=== PATIENT | male | born 1950 | race Caucasian/White ===

== ENCOUNTER → 2022-01-21 | Outpatient (CLI) | payer MEDICARE ==
[2022-01-21 14:32] LABS: Basophils # (A) 0.07 X 10*3/uL (0.00-0.10); Eosinophils # (A) 0.04 X 10*3/uL (0.04-0.35); Eosinophils % (A) 0.6 %; HCT 38.7 % (39.6-50.0); HGB 13.3 g/dL (13.0-17.0); Immature Grans, Automated 2.2 %; Lymphocytes # (A) 0.94 X 10*3/uL (0.90-5.00); MCHC 34.4 g/dL (32.0-37.0); MCV 90.2 fL (80.0-97.0); Mean Platelet Volume 10.2 fL (9.5-12.2); Monocytes # (A) 0.74 X 10*3/uL (0.20-1.00); Monocytes % (A) 10.2 %; NRBC Per 100 WBC 0 /100 WBCS (0.0-0.0); Platelet Count 161 X 10*3/uL (140-440); RBC 4.29 X 10*6/uL (4.40-5.60); RDW 13.6 % (11.5-14.5); WBC 7.25 X 10*3/uL (4.50-10.00)
[2022-01-21 14:43] LABS: African American GFR (CKD) 75.4 (60.0-200.0); Anion Gap 12.9 mmol/L (10.00-18.00); BUN/Creat Ratio 12.48 Ratio (12.00-20.00); Blood Urea Nitrogen 14.1 mg/dL (9.0-27.0); Calcium 9.5 mg/dL (8.7-10.3); Carbon Dioxide 26.6 mmol/L (20.0-27.5); Potassium 3.5 mmol/L (3.5-5.5)
[2022-01-21 17:50] LABS: Appearance,Urine Clear (Clear); Bilirubin,Urine Negative (Negative); Blood,Urine Negative (Negative); Color,Urine Yellow (Yellow); Ketones,Urine Negative (Negative); Nitrite,Urine Negative (Negative); PH, Urine 6.5 (5.0-8.0); Specific Gravity,Urine 1.008 (1.001-1.030); Urobilinogen,Urine 0.2 (0.2,1.0)
== END | disposition home or self-care (01) ==
LOC: LABPAT 10:09
PROVIDERS: ATTEND Urology
DX: Z01.812 Encounter for preprocedural laboratory examination (principal); C61 Malignant neoplasm of prostate
CPT/HCPCS: 80048; 81003; 85025; 87086

== ENCOUNTER 2022-01-30 06:15 | Day surgery (SDC) | payer MEDICARE ==
--- NOTE | 2022-01-24 14:00 | P.HPIHPCON ---
History of Present Illness H&P Date: 01/24/22 Chief Complaint: Prostate cancer This is a 71-year-old male with history of [place] 7(3+4) prostate cancer, he elected to proceed with radiation. Option of placement was discussed with him. Discussed with him the rationale of doing a SpaceOR, and the risk of benefit of doing the procedure, risk of bleeding infection rectal perforation were discussed. He understood all the risk and agreed to proceed prostate size 55 grams Consent for Procedure: I have explained the operation/procedure to the patient, including the risks, benefits, side effects, alternative therapies (including not receiving the proposed treatment or service), the likelihood of the patient achieving his/her goals, and potential recuperation problems for the procedure/sedation/analgesia, as well as any blood products, if indicated. I also explained to the patient the risks, benefits and side effects of the alternatives, as well as the risks related to not receiving the proposed procedure, care, treatment, or services. Surgical - Exam - General no distress, no pain - Eyes normal ocular movement, no pale - ENT normal nares, normal mucosa - Respiratory normal expansion, normal respiratory effort - Abdomen Abdomen: soft, non tender - Psychiatric oriented to time, oriented to person, oriented to place Assessment and Plan Assessment: -OR for SpaceOR placement
[2022-01-27 15:20] VITALS: BMI 28.7
[~2022-01-30 06:15] MED LIST: LACTATED RINGERS 1,000 ML IV SCH; LIDOCAINE 1% (10MG/ML) FOR IV START INTRADERMA PRN
[2022-01-30 06:43] VITALS: TEMP 97
[2022-01-30 06:55] LABS: Glucose,Whole Blood 156 mg/dL (70-110)
[2022-01-30] MEDS ORDERED: fentaNYL (PF) 50 MCG/ML 2 ML AMP IV PRN (07:00)
[2022-01-30] MEDS ORDERED: ONDANSETRON 4 MG/2 ML VIAL IVP PRN (07:00)
[2022-01-30] MEDS ORDERED: MIDAZOLAM 2 MG/2 ML VIAL ONE (07:26)
[2022-01-30] MEDS ORDERED: PROPOFOL 10 MG/ML 20 ML VIAL IV ONE (07:26)
[2022-01-30] MEDS ORDERED: KETAMINE 10 MG/ML 20 ML VIAL ONE (07:26)
[2022-01-30] MEDS ORDERED: LIDOCAINE 2% INJ 20 MG/ML SQ ONE ×3 (07:32→07:51)
--- NOTE | 2022-01-30 08:30 | P.OP ---
Date of Procedure: 01/30/22 Preoperative Diagnosis: prostate cancer Postoperative Diagnosis: Same Procedure(s) Performed: Transrectal U/S and SpaceOR placement Implants: SpaceOR gel Anesthesia: other (sedation) Surgeon: Saurav Thakkar Estimated Blood Loss (ml): 1 Pathology: none sent Condition: stable Disposition: PACU Indications for Procedure: This is a 71-year-old male with history of [place] 7(3+4) prostate cancer, he elected to proceed with radiation. Option of placement was discussed with him. Discussed with him the rationale of doing a SpaceOR, and the risk of benefit of doing the procedure, risk of bleeding infection rectal perforation were discussed. He understood all the risk and agreed to proceed prostate size 55 grams Description of Procedure: The patient was taken to the operating room and placed in the dorsolithotomy po sition, with his legs supported in [place] stirrups. The external genitalia was prepped and draped sterilely. The transrectal ultrasound probe was placed intrarectally. The prostate was imaged. The probe was then placed within the stabilizing stand. A spinal needle was advanced under ultrasonic guidance to the level of the urogenital diaphragm, and lidocaine was used to infiltrate the tissues as the needle was withdrawn. . Next, the SpaceOAR needle was passed through the midline of the perineum, 1-2 cm anterior to the anal opening. The needle was slowly advanced under ultrasonic guidance until the needle tip was located within the fat plane between the prostate and rectum, at the level of the mid prostate gland. The needle was confirmed to be midline on the axial imaging. A small amount of normal saline was injected for hydrodissection. Next, the SpaceOAR components were mixed and loaded into the Y connector per protocol. The Y connector was then connected to the needle, and the components were injected slowly over a course of approximately 12 seconds. A total of 10 ml was injected. Significant distance was created between the prostate and rectum, as desired. It should be noted that at no point was there any concern of rectal perforation. The needle was withdrawn, as well as the transrectal ultrasound probe, and the procedure was terminated. The patient tolerated the procedure well and was taken to the recovery room in stable condition
[2022-01-30 08:36] VITALS: BP 126/78; PULSE 59; RESP 16
== END 2022-01-30 08:51 | disposition home or self-care (01) ==
LOC: OR 06:15
PROVIDERS: ATTEND Urology
DX: C61 Malignant neoplasm of prostate (principal); K21.9 Gastro-esophageal reflux disease without esophagitis; Z79.82 Long term (current) use of aspirin; Z79.899 Other long term (current) drug therapy; Z79.84 Long term (current) use of oral hypoglycemic drugs
CPT/HCPCS: 55874; C1889; J2001; J2250; J0690; J2405; J2704

== ENCOUNTER → 2022-02-03 | Outpatient (CLI) | payer MEDICARE | END | disposition home or self-care (01) | LOC: LABWHC1 11:57 | PROVIDERS: ATTEND Radiology Radiation Oncology | DX: C61 Malignant neoplasm of prostate (principal); C91.10 Chronic lymphocytic leukemia of B-cell type not having achieved remission | CPT/HCPCS: 36415; 84153 ==

== ENCOUNTER → 2022-06-04 | Outpatient (CLI) | payer MEDICARE | END | disposition home or self-care (01) | LOC: LABWHC1 13:54 | PROVIDERS: ATTEND Radiology Radiation Oncology | DX: Z00.6 Encounter for examination for normal comparison and control in clinical research program (principal); C61 Malignant neoplasm of prostate; C91.10 Chronic lymphocytic leukemia of B-cell type not having achieved remission | CPT/HCPCS: 36415; 84153 ==

== ENCOUNTER → 2023-03-04 | Outpatient (CLI) | payer MEDICARE | END | disposition home or self-care (01) | LOC: LABWHC1 08:22 | PROVIDERS: ATTEND Radiology Radiation Oncology | DX: Z00.6 Encounter for examination for normal comparison and control in clinical research program (principal); C61 Malignant neoplasm of prostate; C91.10 Chronic lymphocytic leukemia of B-cell type not having achieved remission | CPT/HCPCS: 36415; 84153 ==

== ENCOUNTER → 2023-09-10 | Outpatient (CLI) | payer MEDICARE | END | disposition home or self-care (01) | LOC: LABWHC1 14:40 | PROVIDERS: ATTEND Radiology Radiation Oncology | DX: Z00.6 Encounter for examination for normal comparison and control in clinical research program (principal); C61 Malignant neoplasm of prostate; C91.10 Chronic lymphocytic leukemia of B-cell type not having achieved remission | CPT/HCPCS: 36415; 84153 ==

== ENCOUNTER → 2024-03-16 | Outpatient (CLI) | payer MEDICARE | END | disposition home or self-care (01) | LOC: LABWHC1 09:11 | PROVIDERS: ATTEND Radiology Radiation Oncology | DX: C61 Malignant neoplasm of prostate | CPT/HCPCS: 36415; 84153 ==